=== PATIENT | male | born 1940 | race Caucasian/White ===

== ENCOUNTER 2016-12-12 13:50 | Day surgery (SDC) | payer MEDICARE ==
[~2016-12-12] VITALS: Ht 172.7 cm; Wt 94.9 kg
[2016-12-12] VITALS (8 sets, daily range): BP systolic 135–167; BP diastolic 67–82; PULSE 66–81; RESP 14–20; O2SAT 96–100
[~2016-12-12 13:50] MED LIST: ASPRIN PO; LATA2.5D6 AFFECT_EYE; LOSA50TA37 PO; Lactated Ringer's 1,000 ML IV ONE; METF500T4 PO; NITROGLYCERINE SL; ROSU40TA PO
[2016-12-12] MEDS ORDERED: Succinylcholine Chloride 20 mg/mL 5 mL Inj ONE (13:51)
[2016-12-12] MEDS ORDERED: Propofol 10,000 mCg/mL 20 mL Inj ONE (13:51)
[2016-12-12] MEDS ORDERED: Glycopyrrolate 0.2 mg/mL 5 mL Inj ONE (13:51)
[2016-12-12] MEDS ORDERED: fentaNYL-PF 50 mCg/mL 2 mL Inj ONE (13:51)
[2016-12-12] MEDS ORDERED: Ondansetron 2 mg/mL 2 mL Inj ONE (13:51)
[2016-12-12] MEDS ORDERED: Neostigmine 1 mg/mL 5 mL Inj ONE (13:51)
[2016-12-12] MEDS ORDERED: Rocuronium 10 mg/mL 5 mL Inj ONE (13:51)
[2016-12-12] MEDS ORDERED: ASPI-973 PO (15:19)
[2016-12-12] MEDS ORDERED: NITR0.4T6 SL (15:19)
[2016-12-12] MEDS ORDERED: CeFAZolin Inj 2 gm / 50mL D5W IV ONE (16:07)
[2016-12-12] MEDS: CeFAZolin Inj 2 GM in IV Premix 1 EACH IV ONE ×2 (17:08→17:14)
[2016-12-12] MEDS ORDERED: HYDROcodone-APAP 5-325 mg Tablet PO PRN (17:10)
[2016-12-12] MEDS ORDERED: Lactated Ringer's 500 ML IV PRN (17:24)
[2016-12-12] MEDS ORDERED: Lactated Ringer's 1,000 ML IV SCH (17:24)
[2016-12-12] MEDS ORDERED: Dexamethasone 4 mg/mL Inj IVPUSH PRN (17:25)
[2016-12-12] MEDS ORDERED: Phenylephrine 10,000 mCg/mL Inj IVPUSH PRN (17:25)
[2016-12-12] MEDS ORDERED: EPHEDrine Sulfate 50 mg/mL Inj IVPUSH PRN (17:25)
[2016-12-12] MEDS ORDERED: HYDROmorphone 1 mg/mL Inj IVPUSH PRN (17:25)
[2016-12-12] MEDS ORDERED: Ondansetron 2 mg/mL 2 mL Inj IVPUSH PRN (17:25)
[2016-12-12] MEDS ORDERED: fentaNYL-PF 50 mCg/mL 2 mL Inj IVPUSH PRN (17:25)
[2016-12-12] MEDS ORDERED: MetoCLOpramide 5 mg/mL 2 mL Inj IVPUSH PRN (17:25)
--- NOTE | 2016-12-12 17:45 | PCM.HPANE ---
Patient Data Surgeon Admitting Provider: Attending Provider:Sommer Ashton MD Primary Care Physician:Kenna Rivera MD Other Provider: Reason for Visit Hematuria Ht/WT & BMI Height (Feet): 5 Height (Inches): 8 Weight (Kilograms): 94.801 Body Mass Index 31.00 Allergies Coded Allergies: morphine (Verified Allergy, Unknown, UNKNOWN, 12/12/16) Past Anesthesia History Anesthesia History: Denies:: Anesthesia Reactions, Malignant Hyperthermia Diabetes History Hx Diabetes?: Yes Type of Diabetes: Type II Glycemic Control: Oral Medication MRSA MRSA: No Medications Blood Thinner: Aspirin Hypertension Medication: Yes (LOSARTAN) Reported Medications Nitroglycerin SL 0.4 Mg Tab.subl0.4 Mg SL PRN For Chest Pain 12/12/16 Aspirin 81 Mg [id number] Mg PO DAILY Ref 0 12/12/16 Metformin 500 Mg [id number] Mg PO BID Ref 0 TAKES 1000MG IN AM; 500MG IN PM 07/25/16 Losartan Potassium 50 Mg Fedibi28 Mg PO DAILY 07/25/16 Latanoprost 2.5 Ml Drops1 Gtt AFFECT_EYE HS #1 BOTTLE 0.005% 07/25/16 Rosuvastatin Calcium (Crestor)40 Mg [id number] Mg PO DAILY 30 Days Ref 0 07/25/16 Discontinued Reported Medications [Nitroglycerine] No Conflict Check0.4 Mg SL [PRN 04/03/12 [Asprin] No Conflict Check81 Mg PO DAILY 04/03/12 History History of ENT Problems?: Yes HEENT History: Positive for:: Cataracts (S/P EXTRACTION) Glaucoma Hx of Heart Problems?: Yes Cardiovascular History: Positive for:: Atrial Fibrillation (HX OF) Cardiac Surgery (HEART CATH (2007,2011)/3 VESSEL CABG 2011) Chest Pain Congestive Heart Failure Coronary Artery Disease Hypertension (HYPERLIPIDEMIA) Irregular Heartbeat (OCC PVC'S, HX A FIB) Valvular Heart Disease (MOD MR,AI) Denies:: Heart Murmur (ECHO 01/2016 EF 40-45%) Other Cardiac History: HX OF ANEMIA Hx of Respiratory Problem?: Yes Respiratory History: Positive for:: COPD (PFT'S 04/2015) Dyspnea (RESOLVED W/ CPAP) Use of C-PAP Machine (RERE+/CPAP SLEEP STUDY 06/2015) Denies:: Pneumonia (HX OF REMOTE PULMONARY "INFECTION") Hx Neurologic Problems?: No Hx of GI Problems?: Yes Gastrointestinal History: Positive for:: Heartburn Rectal Bleeding (HX HEMORRHOIDS) Other GI Pertinent History: INTENTIONAL WEIGHT LOSS Hx of Problems?: Yes Other Pertinent History: HEMATURIA=CURRENT PROBLEM HX OF BLADDER TUMOR/ADRENAL LESION-HAS HAD INDUCTION BCG (LAST INSTILLATION 10/2016) S/P TURBT 07/2016 Male Hx: Denies:: Prostate Problems Scrotal Mass Testicular Surgery Skin History: Positive for:: History Skin Disorders? (HX PRURITIC RASH) Denies:: Pressure Ulcers Hx Musculoskeletal Problems?: Yes Musculoskeletal History: Denies:: Back Injury (C/OF LOWER BACK PAIN) Hx of Psycho/Social Problems?: No Hx Surgeries?: Yes (HEART CATHS X2, CABG, CATARACTS,TURBT) Hx Any Other Health Problems?: Yes Other History: Positive for:: Endocrine Disease (LT ADRENAL NODULE) Hospitalization (CARDIAC) Denies:: Cancer Thyroid Disease History Blood Transfusions: Denies:: Blood Transfuse Reaction Blood Transfusions Hx Diabetes: Yes Hx Alcohol Use: YesAlcoholic Drinks Per Day: 2-3/WEEKHx Substance Use: No Smoking Status: Former Smoker Have You Smoked inLast 12 mo: NoApprox How Many Cigarettes/day: PIPE X 40YRS Stop/Bang S-Snoring: Do You Snore Loudly: Yes T-Tired: feel tired, fatigued: Yes O-Obsered: Observed not breath: No P-Blood Pressure: treated: Yes B- Body Mass Index > 35 kg/m2: No A- Age over 50: Yes N- Neck Large Circumference: No G- Gender Male: Yes RERE Total Score: 5 Risk Assessment Category Category 1A: Patient has history of documented sleep apnea, and HAS NOT received any narcotic, sedative or anesthesia administration during this stay. Category 1B: Patient has history of documented sleep apnea, and HAS received any narcotic , sedative or anesthesia administration during this stay Category 2: Patient has SUSPECTED Obstructive Sleep Apnea, and HAS received any narcotic , sedative or anesthesia administration during this stay. Category 3: Patient has SUSPECTED Obstructive Sleep Apnea and HAS NOT received narcotic, sedative or anesthesia administration during this stay. Category 4: Outpatient in Procedural Areas with known sleep apnea or who screen positive for High Risk via the STOP/BANG questionnaire. Exam Exam General Appearance: Alert, Oriented X3, Cooperative, No Acute Distress HEENT/AIRWAY: MP 2 Lungs: Clear to Auscultation Heart: Exam Unremarkable Plan Impression Patient chart reviewed, patient interviewed and anesthestic plan with risks, benefits, and alternatives discussed, and informed consent obtained. NPO Status: 07/31/16 ASA Physical Status: ASA3 Severe Disease (cad) Anesthetic Plan: GA Bene/Risks/Altern/Consents: Yes HP Complete Prior to Induction: Yes Julian Kevin MD Dec 12, 2016 08:59
--- NOTE | 2016-12-12 17:45 | PCM.ANEP1 ---
Post Anesthesia Phase 1 PACU Phase 1 Assessment Vital Signs Vital Signs Date Time Temp Pulse Resp B/P Pulse Ox O2 Delivery O2 Flow Rate FiO2 12/12/16 15:19 CPAP/BIPAP 12/12/16 14:57 36.8 78 18 135/71 98 Room Air Anesthetic Administered: GA Level of Alertness: Sleeping, hard to arouse Oxygen Delivery: Simple Mask Lungs: Clear to Auscultation Julian Kevin MD Dec 12, 2016 17:45
--- NOTE | 2016-12-12 18:01 | PCM.ANEP2 ---
Post Anesthesia Evaluation ASA/CMS Post Anesthesia VS in Patient's Normal Range?: Yes Resp Stable; Airway Patent?: Yes CV Function & Hydration Stable: Yes Mental Status Recovered?: Yes Pain control Satisfactory?: Yes N/V Control Satisfactory?: Yes Julian Kevin MD Dec 12, 2016 18:01
--- NOTE | 2016-12-13 00:59 | OP ---
[address] [address] OPERATIVE REPORT PATIENT: KOJO MCCAULEY : 1940 MR#: [id number] ADMIT: 12/12/2016 JOB ID: [id number] DATE OF SURGERY: 12/12/2016 PREOPERATIVE DIAGNOSIS(ES): History of bladder cancer. POSTOPERATIVE DIAGNOSIS(ES): History of bladder cancer. PROCEDURE PERFORMED: 1. Cystoscopy. 2. Bladder biopsies. SURGEON: Sommer Ashton MD BUILD AUTOMATION ENGINEER: None. FINDINGS: 1. Bilateral orthotopic ureteral orifices, with somewhat abnormal morphology. The ureteral orifices were in a mound and benign-appearing. The orifices were slit-like openings on the lateral edge of these mounds. 2. No recurrent bladder tumor. ANESTHESIA: General. ESTIMATED BLOOD LOSS: None. DRAINS: None. SPECIMENS: Bladder biopsies. COMPLICATION: None. CONDITION: Stable. INDICATION FOR PROCEDURE: The patient is a 76-year-old gentleman with a history of bladder cancer. He is status post TURBT and BCG. He now presents for surveillance biopsies. DESCRIPTION OF PROCEDURE: After informed consent was obtained, the patient was taken to the operating room. A time-out was performed, identifying the correct patient, surgical site, and procedure. General anesthesia was smoothly induced. He was given intravenous antibiotics just prior to start of procedure. A 22-Icelandic rigid cystoscope was applied to the patient's urethra and advanced to the bladder. The bladder was drained. The bladder was systematically inspected with both 30 and 70 degree lenses. There were no lesions apparent consistent with any signs of recurrent tumor. There were old TURBT sites present. This was biopsied with cold cup biopsy forceps, as well as two other sites on the lateral edges of the bladder. Bugbee was used to cauterize these areas of biopsies. The bladder was drained. There was excellent hemostasis at the end of the procedure. The patient appeared to tolerate the procedure. He was then reversed from general anesthesia and taken to PACU in stable condition. [facility] BROTHERS MEDICAL CENTERDarryl
--- NOTE | 2016-12-13 13:37 | PATH ---
SURGICAL PATHOLOGY Attending Physician:Sommer Ashton, CASE STATUS: Signed Out PATIENT NAME: KOJO MCCAULEY PID: [id number] : 1940 DATE COLLECTED:12/12/2016 00:00 SPECIMEN: Bladder, Biopsy CLINICAL HISTORY: 1). BLADDER BIOPSY FINAL DIAGNOSIS: 1.URINARY BLADDER BIOPSY: FRAGMENTS OF URINARY BLADDER TISSUE WITH MILD CHRONIC INFLAMMATION AND PROMINENT HYPEREMIA OF THE LAMINA PROPRIA. NEGATIVE FOR MALIGNANCY AND SIGNIFICANT ATYPIA. ICD10 CODE Z85.51 GROSS DESCRIPTION: The specimen is received in one formalin filled container labeled with the patient's name, sublabeled "bladder" and consists of 3 portions of tissue which aggregate to 0.3 x 0.3 x 0.2 CM. The specimen is entirely submitted in one cassette. 12/13/2016 [facility] MICRO DESCRIPTION: See diagnosis. ICD-9 CODES: CPT CODES: 1: 30244 Electronically Signed Out Clark Gonzales MD [facility]ology [facility] [address], [place] [address] Technical component performed at [facility], [facility] [address], [place], [address]
== END 2016-12-12 23:59 | disposition home or self-care (01) ==
LOC: SAS 13:50
PROVIDERS: ATTEND Urology
DX: N30.91 Cystitis, unspecified with hematuria (principal); E11.9 Type 2 diabetes mellitus without complications; I10 Essential (primary) hypertension; I48.91 Unspecified atrial fibrillation; I50.9 Heart failure, unspecified; I25.10 Atherosclerotic heart disease of native coronary artery without angina pectoris; J44.9 Chronic obstructive pulmonary disease, unspecified; R12 Heartburn; Z87.891 Personal history of nicotine dependence; Z79.82 Long term (current) use of aspirin; Z79.899 Other long term (current) drug therapy
CPT/HCPCS: 52204; J0690; J3010; J7120